=== PATIENT | female | born 1970 | race Caucasian/White ===

== ENCOUNTER → 2021-12-03 | Day surgery (SDC) | payer OTHER ==
[~2021-12-03] VITALS: Ht 170.2 cm; Wt 73.5 kg
[~2021-12-03] MED LIST: CANDICIDAL CAP1 EACH PO; FOLIC ACID1 M1 PO; GARLIC500 MG PO; METFORMIN HCL1000 MG PO; SUPER VITAMIN B COMP PO; VITAMIN B-122500 MCG PO; VITAMIN D325 MC2 PO
[2021-12-03 10:05] LABS: HCG (URINE) SCREEN POSITIVE (NEGATIVE)
== END | disposition home or self-care (01) ==
LOC: FAS 09:35
PROVIDERS: Anesthesiology
DX: Z12.11 Encounter for screening for malignant neoplasm of colon (principal); K57.30 Diverticulosis of large intestine without perforation or abscess without bleeding; F17.200 Nicotine dependence, unspecified, uncomplicated; Z86.010 Personal history of colon polyps
CPT/HCPCS: 36415; 84702; 84703; J2704; J7120